=== PATIENT | female | born 1945 | race Caucasian/White ===

== ENCOUNTER 2019-04-23 10:41 | Emergency (ER) | payer MEDICAID, MEDICARE ==
[~2019-04-23] VITALS: Ht 157.5 cm; Wt 65.0 kg
[~2019-04-23 10:41] MED LIST: DOCU-28 PO; ONDA4TAB6 PO
[2019-04-23] MEDS ORDERED: morphine 4 MG/ML inj SYRINge IV ONE (10:50)
[2019-04-23] MEDS ORDERED: ondansetron/PF 4mg/2ml inj IV ONE (10:50)
--- NOTE | 2019-04-23 10:58 | NUR ---
PT TO CT SCAN WITH RN
[2019-04-23 11:28] LABS: BASOPHILS # (AUTO) 0.1 X10'3 (0-0.2); BASOPHILS % (AUTO) 0.3 % (0-1); EOSINOPHILS # (AUTO) 0.1 X10'3 (0-0.9); EOSINOPHILS % (AUTO) 0.6 % (0-6); HEMATOCRIT 38.9 % (35.0-45.0); HEMOGLOBIN 13.2 g/dl (12.0-16.0); LYMPHOCYTES # (AUTO) 1.5 X10'3 (1.1-4.8); LYMPHOCYTES % (AUTO) 7.5 % (21-51); MEAN CORPUSCULAR HEMOGLOBIN 28.6 PG (27.0-31.0); MEAN CORPUSCULAR HGB CONC 33.9 g/dL (33.0-36.5); MEAN CORPUSCULAR VOLUME 84.4 FL (78-98); MEAN PLATELET VOLUME 10.2 FL (7.4-10.4); MONOCYTES # (AUTO) 0.8 X10'3 (0-0.9); MONOCYTES % (AUTO) 4.3 % (2-12); NEUTROPHILS % (AUTO) 87.3 % (42-75); PLATELET COUNT 180 X10'3 (140-440); RED BLOOD COUNT 4.62 X10'6 (4.20-5.60); RED CELL DISTRIBUTION WIDTH 13.9 % (11.5-14.5); WHITE BLOOD COUNT 19.4 X10'3 (4.5-11.0)
[2019-04-23] MEDS ORDERED: normal saline 1000ml 1,000 ML IV ONE (11:35)
--- NOTE | 2019-04-23 11:52 | NUR ---
Level 2 trauma called off per MD.
--- NOTE | 2019-04-23 11:53 | NUR ---
pt resting comfortable in bed. family at bedside. NRB on no respiratory distress.
[2019-04-23 11:58] LABS: ALANINE AMINOTRANSFERASE 44 U/L (12-78); ALBUMIN 4.1 G/DL (3.4-5.0); ALBUMIN/GLOBULIN RATIO 1.2 (1.1-1.5); ALKALINE PHOSPHATASE 49 IU/L (46-116); ANION GAP 13 (8-16); ASPARTATE AMINO TRANSFERASE 58 U/L (10-37); BILIRUBIN,TOTAL 0.6 MG/DL (0.1-1.0); BLOOD UREA NITROGEN 23 MG/DL (7-18); BUN/CREATININE RATIO 18.4 (6.6-38.0); CALCIUM 9.6 MG/DL (8.5-10.1); CHLORIDE 107 MMOL/L (99-107); CREATININE 1.25 MG/DL (0.40-0.90); GLUCOSE 114 MG/DL (70-104); POTASSIUM 4.7 MMOL/L (3.5-5.1); SODIUM 142 MMOL/L (135-145); TOTAL CARBON DIOXIDE 21.9 MMOL/L (24-32); TOTAL PROTEIN 7.4 G/DL (6.4-8.2); eGFR 42 ML/MIN
[2019-04-23] MEDS ORDERED: HYDROcodone/acetaminophen 5mg/325mg tablet PO ONE (12:25)
[2019-04-23] MEDS ORDERED: ketorolac trometh. 30mg/ml inj. IV ONE (12:25)
[2019-04-23] MEDS ORDERED: acetaminophen 325mg tablet PO ONE (12:25)
[2019-04-23] MEDS ORDERED: VITC500T PO (12:37)
[2019-04-23] MEDS ORDERED: NAPR220T67 PO (12:37)
[2019-04-23] MEDS ORDERED: METH10005 PO (12:37)
[2019-04-23] MEDS ORDERED: OMEG1CAP2 PO (12:38)
[2019-04-23] MEDS ORDERED: LISI-604 PO (12:39)
[2019-04-23] MEDS ORDERED: GABA-532 PO (12:39)
[2019-04-23] MEDS ORDERED: SERT50TA PO (12:40)
[2019-04-23] MEDS ORDERED: CINN1CAP PO (12:40)
[2019-04-23] MEDS ORDERED: VITA400C65 PO (12:40)
[2019-04-23] MEDS ORDERED: FLAX1CAP4 PO (12:41)
[2019-04-23] MEDS ORDERED: MAGN400T6 PO (12:42)
[2019-04-23] MEDS ORDERED: GLUC-133 PO (12:42)
[2019-04-23] MEDS ORDERED: ATOR40TA72 PO (12:42)
[2019-04-23] MEDS ORDERED: OMEP40CA37 PO (12:43)
[2019-04-23] MEDS ORDERED: HYDR-4353 PO (12:44)
[2019-04-23] MEDS ORDERED: CETI-102 PO (12:45)
[2019-04-23] MEDS ORDERED: ALPR1TAB2 PO (12:45)
[2019-04-23] MEDS ORDERED: DIPH25CA83 PO (12:46)
[2019-04-23] MEDS ORDERED: CALC500T11 PO (12:47)
[2019-04-23 13:57] LABS: PLATELET ESTIMATE NORMAL; TOTAL CELLS COUNTED 100
[2019-04-23] MEDS ORDERED: HYDR-3965 PO (15:49)
[2019-04-23] MEDS ORDERED: CYCL-1 PO (15:49)
[2019-04-23 15:52] VITALS: BP 111/64
== END 2019-04-23 18:04 | disposition home or self-care (01) ==
LOC: ER 10:41
DX: S27.0XXA Traumatic pneumothorax, initial encounter (principal); M25.551 Pain in right hip; E78.00 Pure hypercholesterolemia, unspecified; Z98.890 Other specified postprocedural states; Z88.2 Allergy status to sulfonamides; Z88.5 Allergy status to narcotic agent; Z79.899 Other long term (current) drug therapy; V80.010A Animal-rider injured by fall from or being thrown from horse in noncollision accident, initial encounter; Y93.52 Activity, horseback riding; Y92.89 Other specified places as the place of occurrence of the external cause; Y99.9 Unspecified external cause status
CPT/HCPCS: 36415; 70450; 71045; 72125; 73502; 80053; 85025; 85610; 93005; 96374; 96375; 99284; J1885; J2270; J2405; J7030

== ENCOUNTER 2019-04-25 10:46 | Emergency (ER) | payer MEDICAID, MEDICARE ==
[~2019-04-25] VITALS: Ht 154.9 cm; Wt 65.0 kg
[~2019-04-25 10:46] MED LIST changes: +ALPR1TAB2 PO; +ATOR40TA72 PO; +CALC500T11 PO; +CETI-102 PO; +CINN1CAP PO; +CYCL-1 PO; +DIPH25CA83 PO; -DOCU-28 PO; +FLAX1CAP4 PO; +GABA-532 PO; +GLUC-133 PO; +HYDR-3965 PO; +HYDR-4353 PO; +LISI-604 PO; +MAGN400T6 PO; +METH10005 PO; +NAPR220T67 PO; +OMEG1CAP2 PO; +OMEP40CA37 PO; -ONDA4TAB6 PO; +SERT50TA PO; +VITA400C65 PO; +VITC500T PO
[2019-04-25 10:52] VITALS: BP 133/49
== END 2019-04-25 11:33 | disposition home or self-care (01) ==
LOC: ER 10:47
DX: R07.81 Pleurodynia (principal); M25.551 Pain in right hip; E78.00 Pure hypercholesterolemia, unspecified; Z98.890 Other specified postprocedural states; Z88.2 Allergy status to sulfonamides; Z88.5 Allergy status to narcotic agent; Z79.899 Other long term (current) drug therapy
CPT/HCPCS: 71101; 99284

== ENCOUNTER 2020-05-10 05:14 | Observation (INO) | payer OTHER ==
[2020-05-03 11:07] LABS: BASOPHILS % (AUTO) 0.6 % (0-1); EOSINOPHILS # (AUTO) 0.2 X10'3 (0-0.9); LYMPHOCYTES # (AUTO) 1.9 X10'3 (1.1-4.8); LYMPHOCYTES % (AUTO) 31.8 % (21-51); MEAN CORPUSCULAR HEMOGLOBIN 28.1 PG (27.0-31.0); MEAN CORPUSCULAR VOLUME 85.1 FL (78-98); MEAN PLATELET VOLUME 9.3 FL (7.4-10.4); MONOCYTES # (AUTO) 0.5 X10'3 (0-0.9); MONOCYTES % (AUTO) 8.3 % (2-12); NEUTROPHILS # (AUTO) 3.3 X10'3 (1.8-7.7); NEUTROPHILS % (AUTO) 56.3 % (42-75); PRE OP HEMATOCRIT 39.3 % (35.0-45.0); PRE OP PLATELET COUNT 188 X10'3 (140-440); RED BLOOD COUNT 4.62 X10'6 (4.20-5.60)
[2020-05-03 11:21] LABS: ALBUMIN 3.7 G/DL (3.4-5.0); ALBUMIN/GLOBULIN RATIO 1.1 (1.1-1.5); ALKALINE PHOSPHATASE 51 IU/L (46-116); BLOOD UREA NITROGEN 17 MG/DL (7-18); BUN/CREATININE RATIO 17.5 (6.6-38.0); CALCIUM 9.1 MG/DL (8.5-10.1); CHLORIDE 108 MMOL/L (99-107); CREATININE 0.97 MG/DL (0.40-0.90); PRE OP ALT 22 U/L (30-65); PRE OP ANION GAP 9 (8-16); PRE OP AST 24 U/L (10-37); PRE OP BILIRUB, TOTAL 0.4 MG/DL (0.0-1.0); PRE OP GLUCOSE 91 MG/DL (70-104); PRE OP POTASSIUM 4.3 MMOL/L (3.4-5.1); PRE OP SODIUM 144 MMOL/L (135-145); TOTAL CARBON DIOXIDE 26.8 MMOL/L (24-32); TOTAL PROTEIN 7.1 G/DL (6.4-8.2); eGFR 56 ML/MIN
[2020-05-10] VITALS (17 sets, daily range): BP systolic 99–132; BP diastolic 48–72
[~2020-05-10] VITALS: Ht 152.4 cm; Wt 67.6 kg
[~2020-05-10 05:14] MED LIST changes: +ACET-1008 PO; -ALPR1TAB2 PO; -CALC500T11 PO; -CETI-102 PO; +CETI-90 PO; +CHOL100046 PO; -CYCL-1 PO; -DIPH25CA83 PO; +DOCU100C40 PO; -FLAX1CAP4 PO; +GING550C4 PO; -HYDR-3965 PO; -HYDR-4353 PO; +LACT1CAP65 PO; +MAGN400T28 PO; -MAGN400T6 PO; +MULT-1085 PO; -NAPR220T67 PO; +OMEP40CA13 PO; -OMEP40CA37 PO; +SENN-263 PO; +TURM500C4 PO; -VITA400C65 PO; -VITC500T PO; +[UNRECOGNIZED DRUG - OTHER] PO
[2020-05-10] MEDS ORDERED: metoclopramide 5 mg/ml inj IV ONE (05:30)
[2020-05-10] MEDS ORDERED: celeCOXIB 100mg capsule PO ONE (05:30)
[2020-05-10] MEDS ORDERED: VANCOMYCIN INJ 1000 MG in NORMAL SALINE 250ml IV.SOLN IV ONE (05:30)
[2020-05-10] MEDS ORDERED: gabapentin 300mg capsule PO ONE (05:30)
[2020-05-10] MEDS ORDERED: famotidine 20mg tablet PO ONE (05:30)
[2020-05-10] MEDS ORDERED: acetaminophen 325mg tablet PO ONE (05:30)
[2020-05-10] MEDS ORDERED: oxyCODONE SR 10mg (sust. release) tab -2 tabs (20mg) PO ONE (05:30)
[2020-05-10] MEDS ORDERED: tranexamic acid inj. 1,000 MG in normal saline 100 ML IV ONE (05:30)
[2020-05-10] MEDS ORDERED: ceFAZolin 2gm in dextrose, iso 50 ML IV ONE (05:30)
[2020-05-10] MEDS ORDERED: bisacodyl 10mg suppository rectal RC PRN (06:00)
[2020-05-10] MEDS ORDERED: oxyCODONE/APAP 10/325mg tablet PO PRN (06:00)
[2020-05-10] MEDS ORDERED: HYDROmorphone 1 mg/ml syringe IV PRN (06:00)
[2020-05-10] MEDS ORDERED: acetaminophen 325mg tablet PO PRN (06:00)
[2020-05-10] MEDS ORDERED: HYDROmorphone inj. 0.5 MG/0.5 ML DISP.SYRIN IV PRN (06:00)
[2020-05-10] MEDS ORDERED: cetirizine 10mg tablet PO PRN (06:00)
[2020-05-10] MEDS ORDERED: ondansetron/PF 4mg/2ml inj IV PRN ×2 (06:00→07:55)
[2020-05-10] MEDS ORDERED: diphenhydrAMINE 25mg capsule PO PRN ×2 (06:00)
[2020-05-10] MEDS ORDERED: magnesium hydroxide 30ml (MOM) UD suspension PO PRN (06:00)
[2020-05-10] MEDS ORDERED: LIDOcaine 1% (10mg/ml) 2ml vial ONE (06:19)
[2020-05-10] MEDS: ringers solution, lacted 1,000 ML IV SCH ×2 (06:29→11:46)
[2020-05-10] MEDS ORDERED: ketorolac trometh. 30mg/ml inj. ONE (06:35)
[2020-05-10] MEDS ORDERED: ROPIVAcaine 0.5% (5mg/ml) 30ml vial ONE ×3 (06:35→08:44)
[2020-05-10] MEDS ORDERED: epiNEPHrine 1 mg/ml inj ONE (06:36)
[2020-05-10] MEDS ORDERED: vancomycin 1,000mg inj ONE (06:36)
[2020-05-10] MEDS ORDERED: cloNIDine hcl/PF 100mcg/ml inj ONE (06:36)
[2020-05-10] MEDS ORDERED: MIDAZolam 5mg/5ml vial ONE (06:55)
[2020-05-10] MEDS ORDERED: fentaNYL/PF 50MCG/1 ML 2ML syringe ONE (06:55)
[2020-05-10] MEDS ORDERED: ePHEDrine 50MG/ML INJ. ONE (07:33)
[2020-05-10] MEDS ORDERED: ringers solution, lacted 1,000 ML IV SCH (07:53)
[2020-05-10] MEDS ORDERED: morphine 2 MG/ML inj. syringe IV PRN (07:55)
[2020-05-10] MEDS ORDERED: proCHLORperazine 10 MG/2 ml inj IV PRN (07:55)
[2020-05-10] MEDS ORDERED: morphine 4 MG/ML inj SYRINge IV PRN (07:55)
[2020-05-10] MEDS ORDERED: meperidine/PF 25mg/ml syringe IV PRN ×3 (07:55)
[2020-05-10] MEDS: multivitamins, therapeutics tablet PO SCH (08:00)
[2020-05-10] MEDS: ascorbic acid 500mg tablet PO SCH ×2 (08:00→21:14)
[2020-05-10] MEDS: gabapentin 300mg capsule PO SCH ×3 (08:00→21:16)
[2020-05-10] MEDS ORDERED: pantoprazole 40mg Tablet.DR PO SCH (08:00)
[2020-05-10] MEDS: sertraline 50mg tablet PO SCH (08:00)
[2020-05-10] MEDS: aspirin 325mg tablet PO SCH (08:30)
--- NOTE | 2020-05-10 09:10 | NUR ---
Received from OR via BED , accompanied by Anesthesiologist DR SWANSON and report given by Anesthesiolgist. PATIENT WAKING UP, DENIES PAIN, V/S WNL, NEUROVASCULAR CHECKS INTACT, 18G PIV LUE , MELINA DRESSING TO RIGHT KNEE CDI W/ COLD POWDER PACK AND ON QUE PUMP AT 4ML/HR , SENSATION T-11.
[2020-05-10] MEDS: ROPIVAcaine 0.2%/PF PUMP/bolus 550 ML ADDCANAL SCH (09:21)
[2020-05-10] MEDS ORDERED: ROPIVAcaine 0.2% (10 MG/5 ML) BOLUS INJECTION ADDCANAL PRN (10:00)
--- NOTE | 2020-05-10 10:10 | NUR ---
PATIENT WAKING UP, DENIES PAIN, V/S WNL, NEUROVASCULAR CHECKS INTACT, 18G PIV LUE , MELINA DRESSING TO RIGHT KNEE CDI W/ COLD POWDER PACK AND ON QUE PUMP AT 4ML/HR , SENSATION T-11. PATIENT TAKEN TO 4024B WITH ALL BELONGINGS AND HOOKED UP TO MONITORS IN ROOM AND REPORT GIVEN TO EMISSIONS TECHNICIAN WHO HAS TAKEN OVER PATIENT CARE.
--- NOTE | 2020-05-10 10:15 | NUR ---
Patient in room [facility]TH[facility] 4024B. I have received report from CARLOS Rodriguez in recovery and had the opportunity to ask questions and assume patient care. Pt arrived on the floor at 1015, A&O and in stable condition, 0/10 pn. Will continue to monitor.
[2020-05-10] MEDS: oxyCODONE/APAP 10/325mg tablet PO PRN (12:25)
[2020-05-10] MEDS: potassium cl 20mEq in 1/2 NS 1,000 ML IV SCH ×2 (13:57→15:18)
[2020-05-10] MEDS ORDERED: tranexamic acid inj. 700 MG in normal saline 100ml IV soln 100 ML IV ONE (14:00)
[2020-05-10] MEDS: ceFAZolin 1GM/D5W- ADD-VANTAGE 50 ML IV SCH (15:17)
--- NOTE | 2020-05-10 18:13 | NUR ---
Problems reprioritized. Patient report given, questions answered & plan of care reviewed with CARLOS Yeung.
--- NOTE | 2020-05-10 18:30 | NUR ---
Patient in room ORTHO 4024. I have received report from Jackie GONZALEZ and had the opportunity to ask questions and assume patient care.
[2020-05-10] MEDS ORDERED: vancomycin/NS 1 GM ADD-VANTAGE 250 ML IV SCH (20:00)
[2020-05-10] MEDS ORDERED: sennosides 8.6mg tablet PO SCH ×2 (21:00)
[2020-05-10] MEDS ORDERED: atorvastatin 20mg tablet PO SCH (21:00)
[2020-05-10] MEDS ORDERED: magnesium oxide 400mg tablet PO SCH (21:00)
[2020-05-10] MEDS ORDERED: lisinopril 5mg tablet PO SCH (21:00)
[2020-05-10] MEDS ORDERED: docusate sod 100mg capsule PO SCH (21:00)
[2020-05-11] MEDS: ceFAZolin 1GM/D5W- ADD-VANTAGE 50 ML IV SCH (00:01)
[2020-05-11] MEDS: oxyCODONE/APAP 10/325mg tablet PO PRN ×3 (00:02→10:45)
[2020-05-11] MEDS: potassium cl 20mEq in 1/2 NS 1,000 ML IV SCH ×2 (00:02→00:10)
[2020-05-11 06:00] VITALS: BP 120/58
[2020-05-11 06:21] LABS: BASOPHILS % (AUTO) 0.2 % (0-1); EOSINOPHILS # (AUTO) 0.2 X10'3 (0-0.9); EOSINOPHILS % (AUTO) 3.4 % (0-6); HEMOGLOBIN 10.5 g/dl (12.0-16.0); MEAN CORPUSCULAR HEMOGLOBIN 28.6 PG (27.0-31.0); MEAN CORPUSCULAR HGB CONC 32.9 g/dL (33.0-36.5); MEAN CORPUSCULAR VOLUME 86.9 FL (78-98); MEAN PLATELET VOLUME 9.6 FL (7.4-10.4); MONOCYTES # (AUTO) 0.6 X10'3 (0-0.9); MONOCYTES % (AUTO) 8.5 % (2-12); NEUTROPHILS # (AUTO) 5.3 X10'3 (1.8-7.7); NEUTROPHILS % (AUTO) 73.9 % (42-75); PLATELET COUNT 144 X10'3 (140-440); RED BLOOD COUNT 3.68 X10'6 (4.20-5.60); RED CELL DISTRIBUTION WIDTH 13.9 % (11.5-14.5); WHITE BLOOD COUNT 7.2 X10'3 (4.5-11.0)
--- NOTE | 2020-05-11 06:25 | NUR ---
Problems reprioritized. Patient report given, questions answered & plan of care reviewed with Jackie GONZALEZ.
--- NOTE | 2020-05-11 06:30 | NUR ---
Problems reprioritized. Patient report given, questions answered & plan of care reviewed with Jackie GONZALEZ.
[2020-05-11 06:35] LABS: ANION GAP 7 (8-16); CHLORIDE 110 MMOL/L (99-107); POTASSIUM 4.5 MMOL/L (3.5-5.1); SODIUM 143 MMOL/L (135-145); TOTAL CARBON DIOXIDE 26.2 MMOL/L (24-32)
--- NOTE | 2020-05-11 06:51 | NUR ---
Patient in room ORTHO 4024B. I have received report from CARLOS Jennings and had the opportunity to ask questions and assume patient care.
[2020-05-11] MEDS ORDERED: ASPI-1 PO (07:01)
[2020-05-11] MEDS ORDERED: ONQPUMP ADDCANAL (07:01)
[2020-05-11] MEDS: gabapentin 300mg capsule PO SCH (07:57)
[2020-05-11] MEDS: multivitamins, therapeutics tablet PO SCH (07:57)
[2020-05-11] MEDS: ascorbic acid 500mg tablet PO SCH (07:57)
[2020-05-11] MEDS: aspirin 325mg tablet PO SCH (07:58)
[2020-05-11] MEDS: sertraline 50mg tablet PO SCH (07:58)
[2020-05-11] MEDS ORDERED: pantoprazole 40mg Tablet.DR PO SCH (08:00)
[2020-05-11 10:00] VITALS: BP 106/51
[2020-05-11] MEDS: ROPIVAcaine 0.2%/PF PUMP/bolus 550 ML ADDCANAL SCH (11:51)
--- NOTE | 2020-05-11 11:51 | NUR ---
Joint Replacement Consult: Pt seen by ULISES for written/verbal high protein ed w/ RD contact information provided. Declines additional proteins at this time. Addendum: 05/11/20 at [address]el [address] Amended: Links added.
--- NOTE | 2020-05-11 12:00 | NUR ---
DC INSTRUCTIONS GIVEN TO PT ALONG WITH 2 ISLAND DRESSINGS AND NEW ON Q BALL. ASSISTED PT IN DRESSING. NO IV, WAS REMOVED EARLIER. PT WHEELED DOWN TO SON IN PRIVATE VEHICLE IN STABLE CONDITION.
[2020-05-11] MEDS ORDERED: celeCOXIB 100mg capsule PO SCH (20:00)
== END 2020-05-11 12:00 | disposition home or self-care (01) ==
LOC: PAS 05:14 → ORTHO 4S 05:57
PROVIDERS: ADMIT Orthopaedic Surgery; ATTEND Orthopaedic Surgery
DX: Z03.818 Encounter for observation for suspected exposure to other biological agents ruled out (principal); M17.11 Unilateral primary osteoarthritis, right knee; I10 Essential (primary) hypertension; E78.5 Hyperlipidemia, unspecified; F32.9 Major depressive disorder, single episode, unspecified; K21.9 Gastro-esophageal reflux disease without esophagitis; D62 Acute posthemorrhagic anemia; Z79.82 Long term (current) use of aspirin; Z79.899 Other long term (current) drug therapy
CPT/HCPCS: 27447; 36415; 73560; 80051; 80053; 82948; 85025; 86885; 86900; 86901; 87081; 93005; 96365; 96366; 96367; 96375; 97110; 97161; 97530; A6454; C1713; C1776; G0378; J0171; J0690; J0735; J1885; J2001; J2250; J2765; J2795; J3010; J3370; J7120; U0003; A4215; A4615; A4618; A7000; J3480

== ENCOUNTER 2020-07-07 11:01 | Day surgery (SDC) | payer OTHER ==
[2020-06-30 15:58] LABS: BASOPHILS % (AUTO) 0.6 % (0-1); EOSINOPHILS # (AUTO) 0.4 X10'3 (0-0.9); EOSINOPHILS % (AUTO) 5.1 % (0-6); LYMPHOCYTES # (AUTO) 2.6 X10'3 (1.1-4.8); LYMPHOCYTES % (AUTO) 31.7 % (21-51); MEAN CORPUSCULAR HEMOGLOBIN 27.6 PG (27.0-31.0); MEAN CORPUSCULAR HGB CONC 32.5 g/dL (33.0-36.5); MEAN PLATELET VOLUME 8.9 FL (7.4-10.4); MONOCYTES # (AUTO) 0.6 X10'3 (0-0.9); MONOCYTES % (AUTO) 7.6 % (2-12); NEUTROPHILS # (AUTO) 4.6 X10'3 (1.8-7.7); PRE OP HEMATOCRIT 36.3 % (35.0-45.0); PRE OP HEMOGLOBIN 11.8 g/dL (12.0-16.0); PRE OP PLATELET COUNT 264 X10'3 (140-440); RED BLOOD COUNT 4.27 X10'6 (4.20-5.60); RED CELL DISTRIBUTION WIDTH 14.3 % (11.5-14.5)
[2020-06-30 16:11] LABS: ALBUMIN 3.6 G/DL (3.4-5.0); ALKALINE PHOSPHATASE 57 IU/L (46-116); BLOOD UREA NITROGEN 14 MG/DL (7-18); BUN/CREATININE RATIO 15.1 (6.6-38.0); CALCIUM 8.7 MG/DL (8.5-10.1); CHLORIDE 107 MMOL/L (99-107); CREATININE 0.93 MG/DL (0.40-0.90); PRE OP ALT 16 U/L (30-65); PRE OP ANION GAP 9 (8-16); PRE OP AST 19 U/L (10-37); PRE OP BILIRUB, TOTAL 0.3 MG/DL (0.0-1.0); PRE OP GLUCOSE 111 MG/DL (70-104); PRE OP POTASSIUM 3.8 MMOL/L (3.4-5.1); PRE OP SODIUM 142 MMOL/L (135-145); TOTAL CARBON DIOXIDE 26.2 MMOL/L (24-32); TOTAL PROTEIN 7.3 G/DL (6.4-8.2); eGFR 59 ML/MIN
[~2020-07-07] VITALS: Ht 152.4 cm; Wt 65.3 kg
[2020-07-07] VITALS (9 sets, daily range): BP systolic 107–141; BP diastolic 58–81
[~2020-07-07 11:01] MED LIST changes: -ACET-1008 PO; +ACET-3080 PO; +ACET325T55 PO; -SENN-263 PO; +VANCOMYCIN INJ 1000 MG in NORMAL SALINE 250ml IV.SOLN IV ONE; +cefazolin/dext.iso 2gm/50ml 50 ML IV ONE; +famotidine 20mg tablet PO ONE; +ringers solution, lacted 1,000 ML IV SCH
[2020-07-07] MEDS ORDERED: cloNIDine hcl/PF 100mcg/ml inj ONE (11:12)
[2020-07-07] MEDS ORDERED: BUPIVAcaine/PF 2.5 mg/ml (0.25%) 30ml vial ONE (11:12)
[2020-07-07] MEDS ORDERED: dexamethasone sod phosphate 10mg/ml inj ONE (11:14)
[2020-07-07] MEDS ORDERED: sevoflurane 250ml liquid IH ONE (11:14)
[2020-07-07] MEDS ORDERED: LIDOcaine 1%/PF 5ML 10 MG/ML VIAL ONE (11:14)
[2020-07-07] MEDS ORDERED: midazolam 2 mg/2 ml injection ONE (11:18)
[2020-07-07] MEDS ORDERED: ringers solution, lacted 1,000 ML IV SCH (11:24)
[2020-07-07] MEDS ORDERED: ondansetron/PF 4mg/2ml inj IV PRN (11:25)
[2020-07-07] MEDS ORDERED: HYDROmorphone inj. 0.5 MG/0.5 ML DISP.SYRIN IV PRN ×2 (11:25)
[2020-07-07] MEDS ORDERED: acetaminophen 1,000mg/100ml IV 100 ML IV PRN (11:25)
[2020-07-07] MEDS ORDERED: meperidine/PF 25mg/ml syringe IV PRN (11:25)
[2020-07-07] MEDS ORDERED: proCHLORperazine 10 MG/2 ml inj IV PRN (11:25)
[2020-07-07] MEDS ORDERED: morphine 4 MG/ML inj SYRINge IV PRN (11:25)
[2020-07-07] MEDS ORDERED: morphine 2 MG/ML inj. syringe IV PRN (11:25)
[2020-07-07] MEDS ORDERED: propofol inj 20 ML IV ONE (11:47)
[2020-07-07] MEDS ORDERED: ondansetron/PF 4mg/2ml inj ONE (11:47)
--- NOTE | 2020-07-07 11:51 | NUR ---
RECEIVED FROM OR VIA [facility] ACCOMPANIED BY ANESTHESIOLOGIST DR BENITEZ, REPORT GIVEN. PT DROWSY BUT AROUSES WITH NO COMPLAINT OF PAIN AT THIS TIME. 20 GAUGE PIV L AC PATENT AND RUNNING LR AT 100 ML/HR. RLE KNEE IMMOBILIZER CDI. PPULSES PALPABLE, GOOD CAP REFILL, SKIN PINK AND WARM, VSS, ABD SOFT, RESTING COMFORTABLY
--- NOTE | 2020-07-07 13:01 | NUR ---
PT AWAKE AND ALERT WITH COMPLAINT OF PAIN AT LEVEL ONE AT THIS TIME. 20 GAUGE PIV L AC DC/D CATH TIP INTACT. RLE KNEE IMMOBILIZER CDI. PPULSES PALPABLE, GOOD CAP REFILL, SKIN PINK AND WARM, VSS, ABD SOFT, TOLERATING FLUIDS, ABLE TO DRESS SELF, AMBULATE AND VOID. DISCHARGE INSTRUCTIONS GIVEN AND PT VERBALIZED UNDERSTANDING. TRANSPORTED VIA WHEELCHAIR TO FRIEND IN PERSONAL VEHICLE TO HOME.
== END 2020-07-07 13:01 | disposition home or self-care (01) ==
LOC: PAS 11:01
PROVIDERS: ATTEND Orthopaedic Surgery
DX: M25.561 Pain in right knee (principal); T84.82XA Fibrosis due to internal orthopedic prosthetic devices, implants and grafts, initial encounter; Z96.651 Presence of right artificial knee joint; M24.661 Ankylosis, right knee; F41.8 Other specified anxiety disorders; Z01.84 Encounter for antibody response examination
CPT/HCPCS: 27570; 36415; 64447; 80053; 85025; 87635; J0735; J1100; J2250; J2270; J2405; J2704; J3370; J3490; A4618; J7120

== ENCOUNTER → 2024-05-01 | Outpatient (CLI) | payer MEDICARE ==
[~2024-05-01] MED LIST changes: -LISI-604 PO; +LISI5TAB22 PO; -MAGN400T28 PO; +MAGN400T56 PO; -METH10005 PO; -OMEP40CA13 PO; +OMEP40CA21 PO; -VANCOMYCIN INJ 1000 MG in NORMAL SALINE 250ml IV.SOLN IV ONE; +[UNRECOGNIZED DRUG - CODE] PO; -cefazolin/dext.iso 2gm/50ml 50 ML IV ONE; -famotidine 20mg tablet PO ONE; -ringers solution, lacted 1,000 ML IV SCH
== END | disposition home or self-care (01) ==
LOC: RAD 12:49
PROVIDERS: ATTEND Physician Assistant
DX: K21.9 Gastro-esophageal reflux disease without esophagitis (principal); K44.9 Diaphragmatic hernia without obstruction or gangrene
CPT/HCPCS: 74220